=== PATIENT | female | born 1985 | race African-American/Black ===

== ENCOUNTER 2016-10-22 11:24 | Day surgery (SDC) | payer OTHER, SELFPAY ==
[2016-10-22] VITALS (7 sets, daily range): BP systolic 120–129; BP diastolic 57–76
[~2016-10-22] VITALS: Ht 167.6 cm; Wt 107.5 kg
[~2016-10-22 11:24] MED LIST: CELE-19 PO; CLON0.5T PO; CORL1.7T PO; LAMI1TAB7 PO; LUNE3TAB48 PO; NEUR600T PO; PRAZ2CAP PO; VITA100037 PO; ZANA4CAP PO
[2016-10-22] MEDS ORDERED: LR 1,000 ML IV SCH ×2 (11:30→17:15)
[2016-10-22] MEDS ORDERED: PERCOCET 5MG/325MG TAB PO ONE (11:30)
[2016-10-22] MEDS ORDERED: CelecoXIB (CeleBREX) 100 MG CAP PO ONE (11:30)
[2016-10-22] MEDS ORDERED: GABAPENTIN 300 MG CAP PO ONE (11:45)
[2016-10-22 11:57] LABS: CONTROL LINE UCG INT CTR LINE PRESENT
[2016-10-22] MEDS ORDERED: VITATAB PO (12:50)
[2016-10-22] MEDS ORDERED: THROMBIN SOLN 20,000 UNITS KIT As Ordered ONE (12:55)
[2016-10-22] MEDS ORDERED: BACITRACIN PWD 50,000 UNITS VIAL As Ordered ONE (12:55)
[2016-10-22] MEDS ORDERED: BUPIVACAINE/EPIN 0.25% 30 ML VIAL As Ordered ONE (12:55)
[2016-10-22] MEDS ORDERED: MIDAZOLAM INJ 2 MG/2 ML VIAL (J2250) As Ordered ONE (13:01)
[2016-10-22] MEDS ORDERED: fentaNYL 250 MCG/5 ML INJECTION (J3010) As Ordered ONE (13:02)
[2016-10-22] MEDS ORDERED: LIDOCAINE 2% INJ 100 MG/5 ML SDV (FOR ANES.) As Ordered ONE (13:03)
[2016-10-22] MEDS ORDERED: PROPOFOL 200 MG/20 ML VIAL As Ordered ONE ×3 (13:03→13:05)
[2016-10-22] MEDS ORDERED: ROCURONIUM BROMIDE 50 MG/5 ML VIAL As Ordered ONE (13:05)
[2016-10-22] MEDS ORDERED: ceFAZolin 2 GM/D5W 50 ML IV BAG (J0690) As Ordered ONE (15:04)
[2016-10-22] MEDS ORDERED: dexameTHASONE 4 MG/ML 1ML VIAL (J1100) As Ordered ONE (15:10)
[2016-10-22] MEDS ORDERED: METOCLOPRAMIDE INJ 10MG/2ML VIAL (J2765) As Ordered ONE (15:10)
[2016-10-22] MEDS ORDERED: BUPIVACAINE/EPIN 0.25% 30 ML VIAL XX ONE (15:35)
[2016-10-22] MEDS ORDERED: BACITRACIN PWD 50,000 UNITS VIAL XX ONE (15:35)
[2016-10-22] MEDS ORDERED: BACITRACIN PWD 50,000 UNITS VIAL IR ONE (15:35)
[2016-10-22] MEDS ORDERED: THROMBIN SOLN 20,000 UNITS KIT XX ONE (15:35)
[2016-10-22] MEDS ORDERED: HYDROmorphone HCL 2 MG/ML 1ML VIAL (J1170) As Ordered ONE (15:42)
[2016-10-22] MEDS ORDERED: SUGAMMADEX SODIUM 500 MG/5 ML VIAL (BRIDION) As Ordered ONE (15:45)
[2016-10-22] MEDS ORDERED: ONDANSETRON 4MG/2ML VIAL (J2405) As Ordered ONE (15:45)
--- NOTE | 2016-10-22 16:10 | REP ---
Lumbar spine series, portable cross-table lateral view. History: Herniated disc. Findings: A single portable obtained cross-table lateral view of the lumbar spine documents two metallic probes at the dorsal aspect of the spinal canal at the level of the L5 spinous process. The probes are aligned with the plane of the L5-S1 disc. Impression: Two metallic probes at the level of the L5 spinous process. Signed by Kvng Ortiz MD 10/22/2016 07:29 P
[2016-10-22] MEDS ORDERED: fentaNYL 100 MCG/2 ML INJECTION (J3010) As Ordered ONE (16:58)
[2016-10-22] MEDS ORDERED: MEPERIDINE INJ 25 MG/ML VIAL (J2175) As Ordered ONE (16:58)
[2016-10-22] MEDS: MEPERIDINE INJ 25 MG/ML VIAL (J2175) IV PRN ×2 (17:00→17:05)
[2016-10-22] MEDS: fentaNYL 100 MCG/2 ML INJECTION (J3010) IV PRN ×4 (17:03→17:25)
[2016-10-22] MEDS ORDERED: METOCLOPRAMIDE INJ 10MG/2ML VIAL (J2765) IV PRN (17:15)
[2016-10-22] MEDS ORDERED: PROMETHAZINE INJ 25 MG/ML VIAL (J2550) IV PRN (17:15)
[2016-10-22] MEDS ORDERED: PERCOCET 5MG/325MG TAB PO PRN ×2 (17:15)
[2016-10-22] MEDS ORDERED: ONDANSETRON 4MG/2ML VIAL (J2405) IV PRN (17:15)
[2016-10-22] MEDS ORDERED: HYDROmorphone HCL 1 MG/ML SYRINGE (J1170) IV PRN ×2 (17:15)
[2016-10-22] MEDS ORDERED: tiZANidine 4 MG TAB PO PRN (17:30)
[2016-10-22] MEDS: D5W/LR 1,000 ML IV SCH (18:30)
[2016-10-22] MEDS: GABAPENTIN 300 MG CAP PO SCH (20:20)
[2016-10-22] MEDS: clonazePAM 0.5 MG TAB PO SCH (20:20)
[2016-10-22] MEDS: OMEPRAZOLE 20 MG CAP PO SCH (20:20)
[2016-10-22] MEDS: lamoTRIgine 100MG TAB PO SCH (20:20)
[2016-10-22] MEDS: DOCUSATE SODIUM 100 MG CAP PO SCH (20:20)
[2016-10-22] MEDS ORDERED: PRAZOSIN 1 MG CAP PO SCH (21:00)
[2016-10-22] MEDS: PERCOCET 5MG/325MG TAB PO PRN (21:49)
[2016-10-23] MEDS ORDERED: diphenhydrAMINE 50 MG CAP PO ONE (00:45)
[2016-10-23] MEDS: D5W/LR 1,000 ML IV SCH (01:28)
[2016-10-23] MEDS: PERCOCET 5MG/325MG TAB PO PRN ×3 (01:48→11:06)
[2016-10-23 02:00] VITALS: BP 118/56
[2016-10-23 06:00] VITALS: BP 115/66
[2016-10-23] MEDS: lamoTRIgine 100MG TAB PO SCH (09:00)
[2016-10-23] MEDS ORDERED: CelecoXIB (CeleBREX) 100 MG CAP PO ONE (09:00)
[2016-10-23] MEDS: DOCUSATE SODIUM 100 MG CAP PO SCH (09:57)
[2016-10-23] MEDS: GABAPENTIN 300 MG CAP PO SCH (09:58)
[2016-10-23] MEDS: OMEPRAZOLE 20 MG CAP PO SCH (09:58)
[2016-10-23] MEDS: clonazePAM 0.5 MG TAB PO SCH (09:58)
--- NOTE | 2016-10-23 14:32 | RO ---
DATE OF PROCEDURE: 10/22/2016 PREOPERATIVE DIAGNOSIS: Left lower extremity radiculopathy and large disc extrusion at L5-S1 on the left side. POSTOPERATIVE DIAGNOSIS: Left lower extremity radiculopathy and large disc extrusion at L5-S1 on the left side. PROCEDURE PERFORMED: L5-S1 left laminotomy and microdiscectomy for decompression of thecal sac and nerve roots. SURGEON: Dr. Raf Maynard. CLIENT DIRECTOR: Erlin Scott PA-C. ANESTHESIA: General. ESTIMATED BLOOD LOSS: Less than 50 mL replaced with crystalloid. COMPLICATIONS: No complications. INTRAOPERATIVE FINDINGS: Include large disk extrusion sent to pathology. INDICATIONS: Yvette is a 31-year-old female suffering from significant left lower extremity radicular pain and sensory deficit with a large disc herniation on MRI who has elected for operative intervention. Consent reviewed in detail including sophia discussion of the pathology involved, the procedure proposed, alternatives including doing nothing and risks including not limited to pain, failure, incomplete relief, need for more surgery, bleeding blood loss, infection, blood clots or other problems. The patient agreed to proceed with surgery. DESCRIPTION OF PROCEDURE: Identified in the holding area, site and side verified. Brought to the operating room and positioned after intubation on the Rafiq frame for exposure. Next, once I and the senior statistician were comfortable with the patient's positioning, she was sterilely prepped and draped for exposure of the left lower extremity. Time-out was accomplished. I stood on the patient's left side. I utilized 3.5 loupe magnification at the beginning of the case followed by the microscope later in the case for the decompression. Next, we infiltrated the incision with 0.25% Marcaine with epinephrine. This was accomplished by Mr. Scott. I had palpated bony landmarks of the iliac crest for plotting the incision. The patient's body habitus was concentrated over the posterior area. The length of the incision was about four fingerbreadths long. I made the incision with a 10 blade knife developed down through skin and subcuticular tissues to the posterior lumbar fascia. Appreciated crossing the fibers at L4-5 and I divided the posterior lumbar fascia reflecting it off of the spinous process of L5-S1 and dissection continued along the L5 lamina surface. Next, when I encountered the L5 lamina, I utilized the [employer] Augustus drill t2 drill a 4 mm divot in the lamina into which I placed a Anaya Sapphire retractor. This lead us to obtain a cross-table lateral x-ray to verify level. Once this was accomplished I then utilized the [place] to remove additional posterior lamina of five. My loupes and headlamp were removed. The microscope was brought in. The shadow line retractor was installed. The microscope facilitated participation of Mr. Scott and safe use the high-speed bur. Mr. Scott utilized retractors as well the suction while I utilized the high-speed bur to implement a left unilateral laminotomy extending to the bare area of L5, slightly undercutting the spinous process and extending to the bare area of S1. We utilized curved curette to elevate ligamentum flavum was removed exposing the thecal sac. There was some was some remaining residual epidural fat. The S1 nerve root was identified. The S1 nerve root was appreciated to have disc extrusion which extended under the shoulder but also in the axillary position. I was able to reflect the S1 nerve root using a Anaya Prasanth over the large disc extrusion or the lateral aspect of it and Mr. Scott was able to retain the nerve root using a suction Alvin retractor. Then I utilized the pituitaries to remove, in piecemeal fashion, large fragments of extruded disc material, which were sent the lab for pathology. Once this was accomplished I explored the axillary region as well as the sub-shoulder region and the interspace at L5-S1 for any additional removable friable disc material. I also undercut the superior facette of S1 and inspected the neural foramina which was freed from disc material and impingement. Next, irrigation was accomplished. I also utilized thrombin Gelfoam which was removed at the conclusion of case. At the conclusion of the case, we appreciated no active bleeding. Next, posterior lumbar fascia was reapproximated with interrupted stitch by Mr. Scott. The deep dermis was approximated with interrupted stitch by myself and Mr. Scott and Monocryl was utilized on skin, followed by Steri-Strips. A sterile dressing was applied. The patient was then able to be moved to the hospital bed, extubated, moved to the recovery room in good condition. Mr. Scott participated in the entirety case in the capacity of first front ventilator. For further details please refer to medical record. JENNIFER
== END 2016-10-23 11:20 | disposition home or self-care (01) ==
LOC: EDSEX → M SDC 11:24 → MERGE 13:00 → M MS5PR 18:37 → M SDC 10-23 11:20
PROVIDERS: ATTEND Orthopaedic Surgery
DX: M54.17 Radiculopathy, lumbosacral region (principal); M51.27 Other intervertebral disc displacement, lumbosacral region; I51.9 Heart disease, unspecified; K21.9 Gastro-esophageal reflux disease without esophagitis; F32.9 Major depressive disorder, single episode, unspecified; I47.1 Supraventricular tachycardia; Z79.899 Other long term (current) drug therapy; Z91.040 Latex allergy status
CPT/HCPCS: 36415; 63030; 72110; 84703; 86850; 86900; 86901; 88304; 96374; J0690; J1100; J1170; J2175; J2250; J2405; J2765; J3010

== ENCOUNTER 2018-11-18 05:35 | Emergency (ER) | payer OTHER ==
[~2018-11-18] VITALS: Ht 170.2 cm; Wt 110.5 kg
[~2018-11-18 05:35] MED LIST changes: -CELE-19 PO; +CELE1CAP4 PO; -CLON0.5T PO; +CLON0.5T8 PO; +LUNE3TAB36 PO; -LUNE3TAB48 PO; -VITA100037 PO; +VITA100067 PO; +VITATAB PO
[2018-11-18] MEDS ORDERED: KETOROLAC 60 MG/2 ML VIAL (J1885) IM ONE (06:15)
[2018-11-18] MEDS ORDERED: OMEP20CA3 PO (06:24)
[2018-11-18] MEDS ORDERED: METF500T13 PO (06:24)
[2018-11-18] MEDS ORDERED: CALC600T57 PO (06:24)
[2018-11-18] MEDS ORDERED: TRAZ-160 PO (06:24)
[2018-11-18] MEDS ORDERED: RIZA10TA4 SL (06:26)
[2018-11-18] MEDS ORDERED: ACET-683 PO (06:26)
--- NOTE | 2018-11-18 06:58 | REPVR ---
EXAM: CT Lumbar Spine Without Contrast EXAM DATE/TIME: 11/18/2018 6:09 AM CLINICAL HISTORY: 33 years old, female; Pain; Low back pain; Additional info: Midline pain after heavy lifting/bending; HX herniated disc TECHNIQUE: Axial computed tomography images of the lumbar spine without intravenous contrast. All CT scans at this facility use at least one of these dose optimization techniques: automated exposure control; mA and/or kV adjustment per patient size (includes targeted exams where dose is matched to clinical indication); or iterative reconstruction. Coronal and sagittal reformatted images were created and reviewed. COMPARISON: [facility] Spine. Lumbosacral, complete 10/22/2016 3:15 PM FINDINGS: Vertebrae: There is right L5 S1 and more significant at L4-L5 facet arthrosis. Discs/Spinal canal/Neural foramina: There is mild right paracentral and foraminal disc bulge at L4-L5 without apparent appreciable mass effect on the exiting nerve. There is L5 S1 disc degenerative changes with decrease in intervertebral disc and small to moderate size diffuse disc bulge with osteophyte formations. Soft tissues: Unremarkable. IMPRESSION: 1. No fracture or subluxation. 2. Lower lumbar spine degenerative changes and disc bulge as described above. Electronically signed by: Asad Corbin On 11/18/2018 06:57:59 AM
[2018-11-18 07:12] VITALS: BP 127/77
--- NOTE | 2018-11-18 08:20 | ED PDOC ---
Post-Departure Follow-Up ft [facility] faxed formal report of ct ls spine for fu Kat Lobo MD Nov 18, 2018 08:20
== END 2018-11-18 07:14 | disposition home or self-care (01) ==
LOC: M ED 05:35
DX: M51.26 Other intervertebral disc displacement, lumbar region (principal); M51.37 Other intervertebral disc degeneration, lumbosacral region; J45.909 Unspecified asthma, uncomplicated; I47.1 Supraventricular tachycardia; K21.9 Gastro-esophageal reflux disease without esophagitis; F41.9 Anxiety disorder, unspecified; F32.9 Major depressive disorder, single episode, unspecified; G43.909 Migraine, unspecified, not intractable, without status migrainosus; Z91.040 Latex allergy status; Z79.899 Other long term (current) drug therapy; Z79.84 Long term (current) use of oral hypoglycemic drugs
CPT/HCPCS: 72131; 96372; 99283; J1885

== ENCOUNTER → 2018-11-27 | Outpatient (CLI) | payer OTHER ==
[~2018-11-27] MED LIST changes: +ACET-683 PO; +CALC600T57 PO; +METF500T13 PO; +OMEP20CA3 PO; +PROHANCE 279.3MG/ML 15ML VIAL (A9576) As Ordered ONE; +PROHANCE 279.3MG/ML 5ML VIAL (A9576) As Ordered ONE; +RIZA10TA4 SL; +TRAZ-160 PO
--- NOTE | 2018-11-27 19:50 | REP ---
MR LUMBAR SPINE WITHOUT AND WITH CONTRAST: HISTORY: Back pain. CONTRAST: ProHance 20 mL. COMPARISON: 09/14/2016. Decreased signal intensity on T2-weighted images is present in the L5-S1 intervertebral disc . The disc is decreased in height. These findings are consistent with disc degeneration. There is no disc bulge or herniation at the L1-2 through L3-4 levels. There is hypertrophy of the posterior articulating facets at the L2-3 and L3-4 levels. The nerves exit the neural foramina without compression. A diffuse disc bulge is present at the L4-5 level. This abuts the thecal sac. There is hypertrophy of the posterior articulating facets. The L4 nerves exit the neural foramina without compression. A diffuse disc bulge and mild size left paracentral disc extrusion are present at the L5-S1 level. There is minimal compression of the thecal sac and left S1 nerve as it exits the thecal sac. There is hypertrophy of the posterior articulating facets. The L5 nerves exit the neural foramina without compression. A left laminectomy defect is present. Enhancing scar tissue is present in the left lateral aspect of the spinal canal. The scar tissue involves the left S1 nerve . The conus medullaris is normal in appearance terminating at the level of the L1-2 intervertebral disc. Normal signal intensity is present in the lumbar vertebral bodies. IMPRESSION: 1. Diffuse disc bulge at the L4-5 level . This abuts the thecal sac. The disc bulge is new finding. 2. Diffuse disc bulge and mild size left paracentral disc extrusion at the L5-S1 level with minimal compression of the thecal sac and left S1 nerve as it exits the thecal sac. A left laminectomy defect is present. Scar tissue involves the left S1 nerve. Electronically Signed by Ricardo Todd MD 11/28/2018 08:39 A
== END ==
LOC: M RAD 17:01
PROVIDERS: ATTEND Family Medicine
DX: R20.0 Anesthesia of skin (principal); M51.26 Other intervertebral disc displacement, lumbar region
CPT/HCPCS: 72158; A9576

== ENCOUNTER → 2019-10-30 | Outpatient (CLI) | payer OTHER ==
[~2019-10-30] MED LIST changes: +CLON0.5T2 PO; -CLON0.5T8 PO; +D3 U5000 PO; +GABA600T4 PO; +METF-839 PO; +OMEP1CAP73 PO; -OMEP20CA3 PO; -PROHANCE 279.3MG/ML 15ML VIAL (A9576) As Ordered ONE; -PROHANCE 279.3MG/ML 5ML VIAL (A9576) As Ordered ONE; -RIZA10TA4 SL; +RIZA10TA58 SL; -TRAZ-160 PO; +TRAZ-252 PO; +[UNRECOGNIZED DRUG - CODE] PO
--- NOTE | 2019-10-30 10:33 | REP ---
Clinical: Trauma . Technique: AP, lateral, bilateral oblique views of the left elbow. Findings: No acute fracture or dislocation is appreciated. Joint spaces and surrounding soft tissues appear normal. Lateral view demonstrates normal positioning to the anterior and posterior fat pads without evidence for effusion/hemarthrosis. No subcutaneous emphysema or foreign body identified. Impression: Normal left elbow radiographs. Electronically Signed by Ze Ibrahim MD 10/30/2019 10:24 A
--- NOTE | 2019-10-30 10:44 | REP ---
Clinical: Trauma/injury. Technique: AP, lateral, bilateral oblique and coned-down views of the lumbosacral spine. Findings: Alignment and lordosis maintained. No acute fracture / compression injury or subluxation. Degenerative spondylosis at L4-5 and L5-S1 cannot be excluded. Impression: 1. No acute fracture / compression injury or subluxation. Electronically Signed by Ze Ibrahim MD 10/30/2019 10:36 A
== END ==
LOC: M LRY 09:54
PROVIDERS: ATTEND Nurse Practitioner Family
DX: S39.92XA Unspecified injury of lower back, initial encounter (principal); S59.902A Unspecified injury of left elbow, initial encounter; W18.30XA Fall on same level, unspecified, initial encounter; Y92.9 Unspecified place or not applicable

== ENCOUNTER 2019-11-06 13:34 | Emergency (ER) | payer OTHER ==
[~2019-11-06] VITALS: Ht 170.2 cm; Wt 113.0 kg
[2019-11-06] MEDS ORDERED: FERR1TAB8 PO (13:43)
[2019-11-06] MEDS ORDERED: BIOT1000 PO (13:43)
[2019-11-06] MEDS ORDERED: KETOROLAC 60 MG/2 ML VIAL (J1885) IM ONE (16:30)
[2019-11-06] MEDS ORDERED: LIDOCAINE 5% (LIDODERM) PATCH TD ONE (16:30)
[2019-11-06] MEDS ORDERED: ACETAMINOPHEN 325 MG TAB PO ONE (16:30)
[2019-11-06] MEDS ORDERED: KETO10TAB PO (17:14)
[2019-11-06] MEDS ORDERED: CYCL10TA PO (17:14)
[2019-11-06 17:23] VITALS: BP 153/98
[2019-11-06] MEDS ORDERED: **NOTE PATIENT COMMENT** MISC XX SCH (21:00)
== END 2019-11-06 17:25 | disposition home or self-care (01) ==
LOC: M ED 13:34
DX: S29.012A Strain of muscle and tendon of back wall of thorax, initial encounter (principal); W00.0XXA Fall on same level due to ice and snow, initial encounter; Y92.89 Other specified places as the place of occurrence of the external cause; Y93.01 Activity, walking, marching and hiking; Y99.0 Civilian activity done for income or pay; M54.9 Dorsalgia, unspecified; G89.29 Other chronic pain; Z91.040 Latex allergy status; Z79.899 Other long term (current) drug therapy
CPT/HCPCS: 96372; 99283; J1885

== ENCOUNTER 2021-09-22 22:35 | Emergency (ER) | payer OTHER ==
[~2021-09-22] VITALS: Ht 170.2 cm; Wt 113.6 kg
[~2021-09-22 22:35] MED LIST changes: +BIOT1000 PO; +CYCL-707 PO; +FERR1TAB8 PO; +KETO10TAB PO
[2021-09-23 08:19] LABS: BASO % 0.6 % (0.0-1.0); EOS # 0.1 10^3/uL (0.0-0.5); EOS % 1.4 % (0.0-3.0); HEMATOCRIT 38.1 % (36.0-47.0); HEMOGLOBIN 11.8 g/dl (12.0-15.5); LYMPH # 2.9 10^3/uL (1.5-5.0); LYMPH % 41.1 % (24.0-44.0); MEAN CORPUSCULAR HEMOGLOBIN 27.1 pg (27.0-33.0); MEAN CORPUSCULAR VOLUME 87.4 fl (80.0-96.0); MONO # 0.8 10^3/uL (0.0-0.8); MONO % 11.6 % (2.0-8.0); NEUTROPHILS # 3.2 10^3/uL (1.5-8.5); PLATELET COUNT, AUTOMATED 318 10^3/uL (150-450); RED BLOOD COUNT 4.36 10^6/uL (4.00-5.40); WHITE BLOOD COUNT 7.2 10^3/uL (4.0-10.0)
[2021-09-23 08:46] LABS: ALBUMIN 3.6 GM/DL (3.2-5.2); ALT/SGPT 25 U/L (12-78); BILIRUBIN,DIRECT 0.1 MG/DL (0.0-0.2); BILIRUBIN,TOTAL 0.5 MG/DL (0.2-1.0); LIPASE 77 U/L (73-393); TOTAL PROTEIN 7.4 GM/DL (6.4-8.2)
[2021-09-23 08:59] LABS: HCG, SERUM QUALITATIVE NEGATIVE (NEGATIVE)
[2021-09-23 10:10] LABS: BLOOD UREA NITROGEN 12 MG/DL (7-18); CARBON DIOXIDE LEVEL 23 MEQ/L (21-32); CHLORIDE LEVEL 109 MEQ/L (98-107); CREATININE FOR GFR 0.82 MG/DL (0.55-1.30); GLOMERULAR FILTRATION RATE > 60.0 (>60); GLUCOSE, FASTING 102 MG/DL (70-100); POTASSIUM SERUM 4.3 MEQ/L (3.5-5.1); SODIUM LEVEL 139 MEQ/L (136-145)
[2021-09-23] MEDS ORDERED: GI COCKTAIL 50ML BTL(HYOSCYAMINE/MAALOX/LIDOCAINE VISCOUS)(1:3:1) PO ONE (10:25)
[2021-09-23 10:43] VITALS: BP 137/80
== END 2021-09-23 11:52 | disposition home or self-care (01) ==
LOC: M ED 22:35
DX: K80.70 Calculus of gallbladder and bile duct without cholecystitis without obstruction (principal); J45.909 Unspecified asthma, uncomplicated; F33.9 Major depressive disorder, recurrent, unspecified; F41.9 Anxiety disorder, unspecified; K21.9 Gastro-esophageal reflux disease without esophagitis; Z79.899 Other long term (current) drug therapy; Z91.040 Latex allergy status

== ENCOUNTER → 2021-12-28 | Outpatient (CLI) | payer OTHER ==
[~2021-12-28] MED LIST changes: +DIAZ10TA2; +MELA5TAB47 PO; +ONDA4TAB6 PO; +ULTR50TA8 PO
== END ==
LOC: M SOG 15:29
PROVIDERS: ATTEND Physician Assistant
DX: M25.571 Pain in right ankle and joints of right foot (principal); M25.572 Pain in left ankle and joints of left foot

== ENCOUNTER 2022-01-04 04:29 | Emergency (ER) | payer OTHER ==
[~2022-01-04] VITALS: Ht 170.2 cm; Wt 112.7 kg
[~2022-01-04 04:29] MED LIST changes: -ONDA4TAB6 PO; -ULTR50TA8 PO
[2022-01-04 05:57] LABS: BASO % 0.4 % (0.0-1.0); EOS % 0.3 % (0.0-3.0); HEMATOCRIT 37.8 % (36.0-47.0); HEMOGLOBIN 12.2 g/dl (12.0-15.5); LYMPH # 1.2 10^3/uL (1.5-5.0); MEAN CORPUSCULAR HEMOGLOBIN 27.6 pg (27.0-33.0); MEAN CORPUSCULAR HGB CONC 32.3 g/dl (32.0-36.5); MEAN CORPUSCULAR VOLUME 85.5 fl (80.0-96.0); MONO # 0.5 10^3/uL (0.0-0.8); MONO % 6.4 % (2.0-8.0); NEUTROPHILS # 6.2 10^3/uL (1.5-8.5); NEUTROPHILS % 77.4 % (36.0-66.0); PLATELET COUNT, AUTOMATED 314 10^3/uL (150-450); RED BLOOD COUNT 4.42 10^6/uL (4.00-5.40)
[2022-01-04] MEDS ORDERED: MORPHINE 4 MG/ML 1ML VIAL/SYRINGE IV ONE (06:15)
[2022-01-04] MEDS ORDERED: NS 1,000 ML IV ONE (06:15)
[2022-01-04] MEDS ORDERED: ONDANSETRON 4MG/2ML VIAL IV ONE (06:15)
[2022-01-04 06:28] LABS: HCG, SERUM QUALITATIVE NEGATIVE (NEGATIVE)
[2022-01-04 06:29] LABS: ALT/SGPT 27 U/L (12-78); BILIRUBIN,DIRECT 0.1 MG/DL (0.0-0.2); BILIRUBIN,TOTAL 0.5 MG/DL (0.2-1.0); BLOOD UREA NITROGEN 8 MG/DL (7-18); CALCIUM LEVEL 9.5 MG/DL (8.5-10.1); CARBON DIOXIDE LEVEL 22 MEQ/L (21-32); CHLORIDE LEVEL 108 MEQ/L (98-107); CREATININE FOR GFR 0.85 MG/DL (0.55-1.30); GLOMERULAR FILTRATION RATE > 60.0 (>60); GLUCOSE, FASTING 120 MG/DL (70-100); LIPASE 84 U/L (73-393); POTASSIUM SERUM 4.2 MEQ/L (3.5-5.1); SODIUM LEVEL 138 MEQ/L (136-145); TOTAL PROTEIN 7.6 GM/DL (6.4-8.2)
[2022-01-04] MEDS ORDERED: PROMETHAZINE 25 MG TAB PO ONE (08:05)
[2022-01-04] MEDS ORDERED: ONDA4TAB6 PO (08:09)
[2022-01-04] MEDS ORDERED: ULTR50TA8 PO (08:09)
[2022-01-04 08:37] VITALS: BP 140/78
== END 2022-01-04 08:48 | disposition home or self-care (01) ==
LOC: M ED 04:29
DX: K80.20 Calculus of gallbladder without cholecystitis without obstruction (principal); R11.2 Nausea with vomiting, unspecified; G43.909 Migraine, unspecified, not intractable, without status migrainosus; F32.A Depression, unspecified; F41.9 Anxiety disorder, unspecified; Z91.040 Latex allergy status; Z91.018 Allergy to other foods; Z79.899 Other long term (current) drug therapy
CPT/HCPCS: 76705; 80048; 80076; 83690; 84703; 85025; 93041; 96361; 96374; 96375; 99284; J2270; J2405

== ENCOUNTER 2022-01-06 06:11 | Day surgery (SDC) | payer OTHER ==
[~2022-01-06] VITALS: Ht 170.2 cm; Wt 112.0 kg
[~2022-01-06 06:11] MED LIST changes: +EMLA CREAM 5GM TUBE (LIDOCAINE/PRILOCAINE) TOP PRN; +LIDOCAINE 1% MDV 20ML VIAL SQ PRN; +LR 1,000 ML IV ONE; +ONDA4TAB6 PO; +ULTR50TA8 PO
[2022-01-06 06:57] LABS: HEMATOCRIT 36.7 % (36.0-47.0); HEMOGLOBIN 11.8 g/dl (12.0-15.5); MEAN CORPUSCULAR HEMOGLOBIN 27.2 pg (27.0-33.0); MEAN CORPUSCULAR HGB CONC 32.2 g/dl (32.0-36.5); MEAN CORPUSCULAR VOLUME 84.6 fl (80.0-96.0); PLATELET COUNT, AUTOMATED 282 10^3/uL (150-450); RED BLOOD COUNT 4.34 10^6/uL (4.00-5.40); WHITE BLOOD COUNT 6.4 10^3/uL (4.0-10.0)
[2022-01-06] MEDS ORDERED: dexameTHASONE 4 MG/ML 1ML VIAL (J1100 PER 1MG) As Ordered ONE (07:07)
[2022-01-06] MEDS ORDERED: LIDOCAINE 2% 100MG/5ML SDV (FOR ANES.) As Ordered ONE (07:07)
[2022-01-06] MEDS ORDERED: KETOROLAC 60MG 2ML VIAL As Ordered ONE (07:07)
[2022-01-06] MEDS ORDERED: ONDANSETRON 4MG/2ML VIAL As Ordered ONE ×2 (07:07→07:40)
[2022-01-06] MEDS ORDERED: fentaNYL 250 MCG/5 ML INJECTION As Ordered ONE (07:07)
[2022-01-06] MEDS ORDERED: MIDAZOLAM INJ 2MG/2ML VIAL (J2250 PER 1MG) As Ordered ONE (07:07)
[2022-01-06] MEDS ORDERED: propofoL 200 MG/20 ML VIAL As Ordered ONE (07:08)
[2022-01-06] MEDS ORDERED: LIDOCAINE 1% MDV 20ML VIAL As Ordered ONE (07:11)
[2022-01-06] MEDS ORDERED: SILVER NITRATE APPLICATOR As Ordered ONE (07:11)
[2022-01-06] MEDS ORDERED: ACETAMINOPHEN 1000MG 100ML IV BTL (OFIRMEV) (J0131 PER 10MG) As Ordered ONE (07:29)
[2022-01-06] MEDS ORDERED: METOCLOPRAMIDE INJ 10MG/2ML VIAL (J2765 PER 1) As Ordered ONE (07:29)
[2022-01-06] MEDS ORDERED: PHENYLephrine 500MCG 5ML (100MCG/ML) SYRINGE As Ordered ONE (07:48)
[2022-01-06] MEDS ORDERED: ONDANSETRON 4MG/2ML VIAL IV PRN (08:40)
[2022-01-06] MEDS ORDERED: PERCOCET 5MG/325MG TAB PO PRN (08:40)
[2022-01-06] MEDS ORDERED: LR 1,000 ML IV SCH ×2 (08:40)
[2022-01-06] MEDS ORDERED: fentaNYL 100 MCG/2 ML INJECTION IV PRN (08:40)
[2022-01-06 09:18] VITALS: BP 151/79
== END 2022-01-06 09:39 | disposition home or self-care (01) ==
LOC: M SDC 06:11
PROVIDERS: ATTEND Obstetrics & Gynecology
DX: N85.8 Other specified noninflammatory disorders of uterus (principal); J45.909 Unspecified asthma, uncomplicated; E66.9 Obesity, unspecified; Z68.39 Body mass index [BMI] 39.0-39.9, adult; I47.1 Supraventricular tachycardia; Z88.8 Allergy status to other drugs, medicaments and biological substances; Z91.040 Latex allergy status; Z91.018 Allergy to other foods
CPT/HCPCS: 36415; 58558; 81025; 85027; 86850; 86900; 86901; 88305; J0131; J1100; J1885; J2250; J2370; J2405; J2765; J3010

== ENCOUNTER 2022-01-26 09:45 | Day surgery (SDC) | payer OTHER ==
[~2022-01-26] VITALS: Ht 170.2 cm; Wt 110.7 kg
[~2022-01-26 09:45] MED LIST changes: +BUPIVACAINE/EPIN 0.25% 30 ML VIAL As Ordered ONE; -EMLA CREAM 5GM TUBE (LIDOCAINE/PRILOCAINE) TOP PRN; -LIDOCAINE 1% MDV 20ML VIAL SQ PRN
[2022-01-26] MEDS ORDERED: MIDAZOLAM INJ 2MG/2ML VIAL (J2250 PER 1MG) As Ordered ONE (12:20)
[2022-01-26] MEDS ORDERED: fentaNYL 250 MCG/5 ML INJECTION As Ordered ONE (12:21)
[2022-01-26] MEDS ORDERED: ACETAMINOPHEN 1000MG 100ML IV BTL (OFIRMEV) (J0131 PER 10MG) As Ordered ONE (12:55)
[2022-01-26] MEDS ORDERED: LABETALOL 100MG/20ML VIAL As Ordered ONE (13:04)
[2022-01-26] MEDS ORDERED: propofoL 200 MG/20 ML VIAL As Ordered ONE (13:08)
[2022-01-26] MEDS ORDERED: ONDANSETRON 4MG/2ML VIAL As Ordered ONE (13:08)
[2022-01-26] MEDS ORDERED: ROCURONIUM BROMIDE 50 MG/5 ML VIAL As Ordered ONE ×2 (13:08→13:36)
[2022-01-26] MEDS ORDERED: LIDOCAINE 2% 100MG/5ML SDV (FOR ANES.) As Ordered ONE (13:08)
[2022-01-26] MEDS ORDERED: dexameTHASONE 4 MG/ML 1ML VIAL (J1100 PER 1MG) As Ordered ONE (13:08)
[2022-01-26] MEDS ORDERED: SUGAMMADEX SODIUM 500 MG/5 ML VIAL (BRIDION) As Ordered ONE (13:09)
[2022-01-26] MEDS ORDERED: KETOROLAC 60MG 2ML VIAL As Ordered ONE (13:10)
[2022-01-26] MEDS ORDERED: ONDANSETRON 4MG/2ML VIAL IV PRN (14:10)
[2022-01-26] MEDS ORDERED: LR 1,000 ML IV SCH (14:10)
[2022-01-26] MEDS ORDERED: METOCLOPRAMIDE INJ 10MG/2ML VIAL (J2765 PER 1) IV PRN (14:10)
[2022-01-26] MEDS ORDERED: NORCO, ANEXSIA 5/325MG TABLET (HYDROcodone/ACETAMINOPHEN) PO PRN (14:10)
[2022-01-26] MEDS: PERCOCET 5MG/325MG TAB PO PRN ×2 (14:15→14:49)
[2022-01-26] MEDS: fentaNYL 100 MCG/2 ML INJECTION IV PRN ×4 (14:25→14:48)
[2022-01-26 16:04] VITALS: BP 137/74
== END 2022-01-26 16:12 | disposition home or self-care (01) ==
LOC: M SDC 09:45
PROVIDERS: ATTEND Surgery
DX: K80.10 Calculus of gallbladder with chronic cholecystitis without obstruction (principal); R12 Heartburn; R94.31 Abnormal electrocardiogram [ECG] [EKG]; G43.909 Migraine, unspecified, not intractable, without status migrainosus; F43.10 Post-traumatic stress disorder, unspecified; F41.9 Anxiety disorder, unspecified; F32.A Depression, unspecified; Z91.040 Latex allergy status
CPT/HCPCS: 47562; 81025; 88304; J0131; J1100; J1885; J2250; J2405; J3010; S2900

== ENCOUNTER → 2022-02-08 | Outpatient (CLI) | payer OTHER ==
[~2022-02-08] MED LIST changes: -BUPIVACAINE/EPIN 0.25% 30 ML VIAL As Ordered ONE; -LR 1,000 ML IV ONE
== END ==
LOC: M RAD 06:31
PROVIDERS: ATTEND Orthopaedic Surgery Hand Surgery
DX: S82.51XA Displaced fracture of medial malleolus of right tibia, initial encounter for closed fracture (principal); W18.30XA Fall on same level, unspecified, initial encounter; Y92.009 Unspecified place in unspecified non-institutional (private) residence as the place of occurrence of the external cause

== ENCOUNTER → 2022-06-13 | Outpatient (CLI) | payer OTHER ==
[~2022-06-13] MED LIST changes: +ACET32TAB PO
== END ==
LOC: M LABSMTC 10:16
PROVIDERS: ATTEND Anesthesiology
DX: Z01.818 Encounter for other preprocedural examination (principal); Z11.52 Encounter for screening for COVID-19

== ENCOUNTER 2022-06-16 06:15 | Day surgery (SDC) | payer OTHER ==
[~2022-06-16] VITALS: Ht 170.2 cm; Wt 114.3 kg
[~2022-06-16 06:15] MED LIST changes: +ceFAZolin SOD 2 GM in IV 1 EA IV ONE
[2022-06-16] MEDS ORDERED: LR 1,000 ML IV SCH ×2 (06:25→09:25)
[2022-06-16] MEDS ORDERED: LIDOCAINE 1% SDV 30ML VIAL As Ordered ONE (07:06)
[2022-06-16] MEDS ORDERED: BUPIVACAINE HCL 0.5% 30ML VIAL As Ordered ONE (07:06)
[2022-06-16] MEDS ORDERED: KETOROLAC 60MG 2ML VIAL As Ordered ONE (07:14)
[2022-06-16] MEDS ORDERED: HYDROmorphone HCL 2MG/ML 1ML VIAL As Ordered ONE (07:14)
[2022-06-16] MEDS ORDERED: MIDAZOLAM INJ 2MG/2ML VIAL (J2250 PER 1MG) As Ordered ONE (07:14)
[2022-06-16] MEDS ORDERED: dexameTHASONE 4 MG/ML 1ML VIAL (J1100 PER 1MG) As Ordered ONE (07:14)
[2022-06-16] MEDS ORDERED: ONDANSETRON 4MG 2ML VIAL As Ordered ONE (07:15)
[2022-06-16] MEDS ORDERED: ACETAMINOPHEN 1000MG 100ML IV BTL (OFIRMEV) (J0131 PER 10MG) As Ordered ONE (07:15)
[2022-06-16] MEDS ORDERED: LIDOCAINE 2% 100MG/5ML SDV (FOR ANES.) As Ordered ONE (07:15)
[2022-06-16] MEDS ORDERED: propofoL 200 MG/20 ML VIAL As Ordered ONE (07:15)
[2022-06-16] MEDS ORDERED: METOCLOPRAMIDE INJ 10MG/2ML VIAL (J2765 PER 1) As Ordered ONE (07:45)
[2022-06-16] MEDS ORDERED: oxyCODONE 5MG TAB PO PRN (09:25)
[2022-06-16] MEDS ORDERED: ONDANSETRON 4MG 2ML VIAL IV PRN (09:25)
[2022-06-16] MEDS ORDERED: fentaNYL 100 MCG/2 ML INJECTION IV PRN (09:25)
[2022-06-16 10:35] VITALS: BP 145/77
== END 2022-06-16 10:58 | disposition home or self-care (01) ==
LOC: M SDC 06:15
PROVIDERS: ATTEND Podiatrist Foot & Ankle Surgery
DX: S93.491D Sprain of other ligament of right ankle, subsequent encounter (principal); X58.XXXD Exposure to other specified factors, subsequent encounter; J45.909 Unspecified asthma, uncomplicated; I51.9 Heart disease, unspecified; Z88.8 Allergy status to other drugs, medicaments and biological substances; Z91.040 Latex allergy status; Z91.018 Allergy to other foods
CPT/HCPCS: 27698; 81025; C1713; J0131; J0690; J1100; J1170; J1885; J2250; J2405; J2765

== ENCOUNTER → 2022-08-03 | Outpatient (CLI) | payer OTHER ==
[~2022-08-03] MED LIST changes: -ceFAZolin SOD 2 GM in IV 1 EA IV ONE
== END ==
LOC: M SOG 11:17
PROVIDERS: ATTEND Orthopaedic Surgery Hand Surgery
DX: M25.531 Pain in right wrist (principal); M25.532 Pain in left wrist

== ENCOUNTER → 2022-11-26 | Outpatient (CLI) | payer OTHER ==
[~2022-11-26] MED LIST changes: +B-2100TA PO; +FLON1SPR NARES; +IRON65TA2 PO; +MAGN400C PO; +MIRT1TAB16 PO; +OMEG10002 PO; +OMEP-173 PO; +PROA1AER2 INH; +RA S0.65 NARES; +VITA100093 PO; +VITMTA PO; +[UNRECOGNIZED DRUG - CODE] PO; -[UNRECOGNIZED DRUG - CODE] PO
== END ==
LOC: M LABSMTC 10:08
PROVIDERS: ATTEND Anesthesiology
DX: Z01.812 Encounter for preprocedural laboratory examination (principal); Z20.822 Contact with and (suspected) exposure to COVID-19

== ENCOUNTER 2022-12-01 08:28 | Day surgery (SDC) | payer OTHER ==
[~2022-12-01] VITALS: Ht 170.2 cm; Wt 122.8 kg
[2022-12-01] MEDS ORDERED: fentaNYL 100 MCG/2 ML INJECTION As Ordered ONE (09:07)
[2022-12-01] MEDS ORDERED: MIDAZOLAM INJ 2MG/2ML VIAL As Ordered ONE (09:08)
[2022-12-01] MEDS ORDERED: LIDOCAINE 1% SDV 5ML VIAL SC PRN (09:10)
[2022-12-01] MEDS ORDERED: LR 1,000 ML IV SCH ×2 (09:10→11:35)
[2022-12-01] MEDS ORDERED: ONDANSETRON 4MG 2ML VIAL As Ordered ONE (09:39)
[2022-12-01] MEDS ORDERED: LIDOCAINE 2% 100MG/5ML SDV (FOR ANES.) As Ordered ONE (09:39)
[2022-12-01] MEDS ORDERED: propofoL 200 MG/20 ML VIAL As Ordered ONE (09:39)
[2022-12-01] MEDS ORDERED: BUPIVACAINE HCL 0.25% 30ML VIAL As Ordered ONE (10:29)
[2022-12-01] MEDS ORDERED: fentaNYL 100 MCG/2 ML INJECTION IV PRN (11:35)
[2022-12-01] MEDS ORDERED: ONDANSETRON 4MG 2ML VIAL IV PRN (11:35)
[2022-12-01] MEDS: oxyCODONE 5MG TAB PO PRN ×2 (11:46→12:10)
[2022-12-01 12:25] VITALS: BP 141/97
== END 2022-12-01 12:46 | disposition home or self-care (01) ==
LOC: M SDC 08:28
PROVIDERS: ATTEND Orthopaedic Surgery Hand Surgery
DX: G56.02 Carpal tunnel syndrome, left upper limb (principal); R94.31 Abnormal electrocardiogram [ECG] [EKG]; I47.1 Supraventricular tachycardia; K21.9 Gastro-esophageal reflux disease without esophagitis; J45.909 Unspecified asthma, uncomplicated; F43.10 Post-traumatic stress disorder, unspecified; M54.9 Dorsalgia, unspecified; Z79.899 Other long term (current) drug therapy
CPT/HCPCS: 29848; 81025; J1100; J2250; J2405; J3010

== ENCOUNTER → 2023-07-06 | Outpatient (CLI) | payer OTHER ==
[~2023-07-06] MED LIST changes: -LUNE3TAB36 PO; +LUNE3TAB50 PO
== END ==
LOC: M SLEEP 20:00
DX: R06.83 Snoring (principal)

== ENCOUNTER → 2023-09-23 | Outpatient (CLI) | payer OTHER | LOC: M WHC 14:01 | PROVIDERS: ATTEND Nurse Practitioner Family | DX: Z12.31 Encounter for screening mammogram for malignant neoplasm of breast (principal) ==

== ENCOUNTER → 2023-10-06 | Outpatient (CLI) | payer OTHER | LOC: M WHC 08:13 | PROVIDERS: ATTEND Nurse Practitioner Family | DX: R92.2 Inconclusive mammogram (principal); N63.20 Unspecified lump in the left breast, unspecified quadrant ==

== ENCOUNTER → 2023-10-24 | Outpatient (CLI) | payer OTHER | LOC: M RAD 16:13 | PROVIDERS: ATTEND Nurse Practitioner Family | DX: M54.9 Dorsalgia, unspecified (principal) ==

== ENCOUNTER 2023-11-22 10:39 | Day surgery (SDC) | payer OTHER ==
[~2023-11-22] VITALS: Ht 170.2 cm; Wt 116.2 kg
[~2023-11-22 10:39] MED LIST changes: +BRIN10TA4 PO; +ROSU5TAB5 PO; +THERTAB52 PO; +TRAZ-257 PO
[2023-11-22] MEDS ORDERED: LR 1,000 ML IV SCH ×2 (10:45→13:45)
[2023-11-22] MEDS ORDERED: ONDANSETRON 4MG 2ML VIAL As Ordered ONE (11:43)
[2023-11-22] MEDS ORDERED: MIDAZOLAM INJ 2MG/2ML VIAL As Ordered ONE (11:43)
[2023-11-22] MEDS ORDERED: KETOROLAC 60MG 2ML VIAL As Ordered ONE (11:43)
[2023-11-22] MEDS ORDERED: fentaNYL 100 MCG/2 ML INJECTION As Ordered ONE (11:43)
[2023-11-22] MEDS ORDERED: LIDOCAINE 2% 100MG/5ML SDV (FOR ANES.) As Ordered ONE (11:44)
[2023-11-22] MEDS ORDERED: propofoL 200 MG/20 ML VIAL As Ordered ONE (11:44)
[2023-11-22] MEDS ORDERED: ACETAMINOPHEN 1000MG 100ML IV BAG As Ordered ONE (11:44)
[2023-11-22] MEDS ORDERED: METOCLOPRAMIDE INJ 10MG/2ML VIAL As Ordered ONE (12:49)
[2023-11-22] MEDS ORDERED: diphenhydrAMINE 50MG/ML VIAL As Ordered ONE (13:13)
[2023-11-22] MEDS ORDERED: ONDANSETRON 4MG 2ML VIAL IV PRN (13:45)
[2023-11-22] MEDS ORDERED: fentaNYL 100 MCG/2 ML INJECTION IV PRN (13:45)
[2023-11-22] MEDS: HYDROMORPHONE HCL 0.5 MG/ 0.5 ML SYRINGE IV PRN (13:59)
[2023-11-22] MEDS: oxyCODONE 5MG TAB PO PRN (14:16)
[2023-11-22] MEDS: fentaNYL 100 MCG/2 ML INJECTION IV PRN (14:29)
[2023-11-22 16:00] VITALS: BP 166/88; TEMP 98.3; O2SAT 99
== END 2023-11-22 16:18 | disposition home or self-care (01) ==
LOC: M SDC 10:39
PROVIDERS: ATTEND Orthopaedic Surgery Hand Surgery
DX: G56.01 Carpal tunnel syndrome, right upper limb (principal); M67.241 Synovial hypertrophy, not elsewhere classified, right hand; Z91.018 Allergy to other foods; Z91.048 Other nonmedicinal substance allergy status; Z91.040 Latex allergy status; Z88.8 Allergy status to other drugs, medicaments and biological substances; Z79.899 Other long term (current) drug therapy
CPT/HCPCS: 29848; 81025; 88305; J0131; J0665; J1100; J1170; J1200; J1885; J2250; J2405; J2765; J3010

== ENCOUNTER → 2024-03-29 | Outpatient (CLI) | payer OTHER ==
[~2024-03-29] MED LIST changes: +ONDA-282 PO; -ONDA4TAB6 PO; +ROSU5TAB40 PO; -ROSU5TAB5 PO
== END ==
LOC: M PLARAD 10:30
PROVIDERS: ATTEND Family Medicine
DX: M54.59 Other low back pain (principal)

== ENCOUNTER → 2024-04-10 | Outpatient (CLI) | payer OTHER | LOC: M WHC 07:43 | PROVIDERS: ATTEND Nurse Practitioner Family | DX: R92.8 Other abnormal and inconclusive findings on diagnostic imaging of breast (principal) ==

== ENCOUNTER → 2024-09-24 | Outpatient (CLI) | payer OTHER ==
[~2024-09-24] MED LIST changes: +GABA-1490 PO; -GABA600T4 PO; -ROSU5TAB40 PO; +ROSU5TAB49 PO
== END ==
LOC: M WHC 15:03
PROVIDERS: ATTEND Nurse Practitioner Adult Health
DX: Z12.31 Encounter for screening mammogram for malignant neoplasm of breast (principal); N64.89 Other specified disorders of breast
CPT/HCPCS: 76642; 77066; G0279

== ENCOUNTER → 2024-10-18 | Outpatient (CLI) | payer OTHER ==
[~2024-10-18] MED LIST changes: +D 50CAP2; +GABA-1172; +METH-1164 PO; +SEMA0.252
[2024-10-18 15:45] VITALS: TEMP 98.4
[2024-10-18 16:41] VITALS: BP 136/78; O2SAT 99
== END ==
LOC: M WHCPRO 15:40
PROVIDERS: ATTEND Nurse Practitioner Adult Health
DX: N63.21 Unspecified lump in the left breast, upper outer quadrant (principal); N63.23 Unspecified lump in the left breast, lower outer quadrant

== ENCOUNTER 2024-10-23 09:18 | Emergency (ER) | payer OTHER ==
[~2024-10-23] VITALS: Ht 170.2 cm; Wt 119.2 kg
[~2024-10-23 09:18] MED LIST changes: -D 50CAP2; -GABA-1172; -METH-1164 PO; -SEMA0.252
[2024-10-23] MEDS ORDERED: SEMA0.252 (09:33)
[2024-10-23] MEDS ORDERED: D 50CAP2 (09:33)
[2024-10-23] MEDS ORDERED: GABA-1172 (09:33)
[2024-10-23] MEDS: KETOROLAC 60MG 2ML VIAL IM ONE (12:00)
[2024-10-23] MEDS: methocarbamoL 500 MG TAB PO ONE (12:00)
[2024-10-23] MEDS ORDERED: METH-1164 PO (14:43)
[2024-10-23 14:50] VITALS: BP 140/87; TEMP 98.9; O2SAT 98
== END 2024-10-23 15:00 | disposition home or self-care (01) ==
LOC: M ED 09:18
DX: M41.86 Other forms of scoliosis, lumbar region (principal); M54.50 Low back pain, unspecified; J45.909 Unspecified asthma, uncomplicated; F10.10 Alcohol abuse, uncomplicated; Z91.040 Latex allergy status; Z91.018 Allergy to other foods; Z88.8 Allergy status to other drugs, medicaments and biological substances; Z79.4 Long term (current) use of insulin; Z79.899 Other long term (current) drug therapy
CPT/HCPCS: 72110; 96372; 99283; J1885

== ENCOUNTER 2024-10-28 12:07 | Emergency (ER) | payer OTHER ==
[~2024-10-28] VITALS: Ht 170.2 cm; Wt 119.0 kg
[~2024-10-28 12:07] MED LIST changes: +D 50CAP2; +GABA-1172; +METH-1164 PO; +SEMA0.252
[2024-10-28 12:10] VITALS: TEMP 97.4
[2024-10-28 14:29] VITALS: BP 157/91; O2SAT 98
[2024-10-28] MEDS: traMADol 50 MG TAB PO ONE (14:41)
[2024-10-28] MEDS ORDERED: MEDR4PAK PO (14:53)
== END 2024-10-28 15:03 | disposition home or self-care (01) ==
LOC: M ED 12:07
DX: S13.4XXA Sprain of ligaments of cervical spine, initial encounter (principal); S43.402A Unspecified sprain of left shoulder joint, initial encounter; M54.50 Low back pain, unspecified; R51.9 Headache, unspecified; Y92.481 Parking lot as the place of occurrence of the external cause; Y93.9 Activity, unspecified; Y99.9 Unspecified external cause status; W01.0XXA Fall on same level from slipping, tripping and stumbling without subsequent striking against object, initial encounter; Z88.8 Allergy status to other drugs, medicaments and biological substances; Z91.040 Latex allergy status; Z91.018 Allergy to other foods; Z79.4 Long term (current) use of insulin; Z79.899 Other long term (current) drug therapy

== ENCOUNTER → 2024-12-07 | Outpatient (CLI) | payer OTHER ==
[~2024-12-07] MED LIST changes: +MEDR4PAK PO
== END ==
LOC: M PLARAD 07:57
PROVIDERS: ATTEND Orthopaedic Surgery
DX: M47.816 Spondylosis without myelopathy or radiculopathy, lumbar region (principal); M43.16 Spondylolisthesis, lumbar region; M51.27 Other intervertebral disc displacement, lumbosacral region

== ENCOUNTER → 2025-01-29 | Outpatient (CLI) | payer OTHER | LOC: M RAD 11:00 | PROVIDERS: ATTEND Student in an Organized Health Care Education/Training Program | DX: M75.42 Impingement syndrome of left shoulder (principal) ==

== ENCOUNTER → 2025-05-30 | Outpatient (CLI) | payer OTHER ==
[~2025-05-30] MED LIST changes: -BIOT1000 PO; +BIOT10002 PO
== END ==
LOC: M RAD 15:39
PROVIDERS: ATTEND Nurse Practitioner Family
DX: R10.84 Generalized abdominal pain (principal); K42.9 Umbilical hernia without obstruction or gangrene; R93.89 Abnormal findings on diagnostic imaging of other specified body structures

== ENCOUNTER → 2025-07-02 | Outpatient (CLI) | payer OTHER | LOC: M RAD 15:26 | PROVIDERS: ATTEND Registered Nurse | DX: N83.202 Unspecified ovarian cyst, left side (principal) ==

== ENCOUNTER 2025-08-12 10:27 | Emergency (ER) | payer OTHER ==
[~2025-08-12] VITALS: Ht 170.2 cm; Wt 102.6 kg
[2025-08-12 11:24] LABS: BASO # 0.0 10^3/uL (0.0-0.2); BASO % 0.5 % (0.0-1.0); EOS # 0.1 10^3/uL (0.0-0.5); EOS % 1.3 % (0.0-3.0); LYMPH # 2.7 10^3/uL (1.5-5.0); LYMPH % 44.1 % (24.0-44.0); MONO # 0.6 10^3/uL (0.0-0.8); MONO % 9.8 % (2.0-8.0); NEUTROPHILS # 2.7 10^3/uL (1.5-8.5); NEUTROPHILS % 44.1 % (36.0-66.0); PLATELET COUNT, AUTOMATED 322 10^3/uL (150-450)
[2025-08-12 11:53] LABS: ALT/SGPT 29 U/L (7.0-40); AST/SGOT 21 U/L (<34); CALCIUM LEVEL 9.2 MG/DL (8.5-10.1); CARBON DIOXIDE LEVEL 25 MMOL/L (20-31); CHLORIDE LEVEL 106 MMOL/L (98-107); CREATININE FOR GFR 1.03 MG/DL (0.55-1.30); GLOMERULAR FILTRATION RATE 70.1 (>58); POTASSIUM SERUM 5.0 MMOL/L (3.5-5.1); SODIUM LEVEL 139 MMOL/L (136-145)
[2025-08-12 12:00] LABS: HCG, SERUM QUALITATIVE NEGATIVE (NEGATIVE)
[2025-08-12 13:14] LABS: KETONE, URINE AUTO RFX NEGATIVE (NEGATIVE); LEUKOCYTE ESTERASE UR AUTO RFX NEGATIVE (NEGATIVE); MUCUS, URINE RFX SMALL (NEGATIVE); NITRITE, URINE AUTO RFX NEGATIVE (NEGATIVE); RBC, URINE AUTO RFX 77 /HPF (0-3); SQUAM EPITHELIAL CELL UR AURFX 0 /HPF (0-6); WBC, URINE AUTO RFX 2 /HPF (0-3)
[2025-08-12] MEDS: ONDANSETRON 4MG/2ML VIAL IV ONE (13:17)
[2025-08-12] MEDS: PANTOPRAZOLE 40MG VIAL IV ONE (13:19)
[2025-08-12] MEDS: MAALOX 30 ML SUSP *UDC PO ONE (13:21)
[2025-08-12] MEDS ORDERED: ISOVUE-370 76% 100 ML VIAL As Ordered ONE (13:21)
[2025-08-12] MEDS: SUCRALFATE SUSP 1GM/10ML UD PO ONE (13:24)
[2025-08-12 14:11] VITALS: BP 132/86; TEMP 98.2; O2SAT 99
[2025-08-12] MEDS ORDERED: OMEP40CA4 PO (14:27)
[2025-08-12] MEDS ORDERED: SUCR1TA PO (14:27)
== END 2025-08-12 14:36 | disposition home or self-care (01) ==
LOC: M ED 10:27
DX: K29.00 Acute gastritis without bleeding (principal); Z88.8 Allergy status to other drugs, medicaments and biological substances; Z91.018 Allergy to other foods; Z91.09 Other allergy status, other than to drugs and biological substances; Z79.899 Other long term (current) drug therapy
CPT/HCPCS: 74177; 80048; 80076; 81001; 83690; 84703; 85025; 96374; 96375; 99284; J2405; J2470; Q9967

== ENCOUNTER → 2025-09-03 | Outpatient (REF) | payer OTHER ==
[~2025-09-03] MED LIST changes: +OMEP40CA4 PO; +SUCR1TA PO
[2025-09-03 17:28] LABS: COLLAGEN EPINEPHRINE 210 SECONDS (74-162)
[2025-09-03 17:43] LABS: COLLAGEN ADP 99 SECONDS (56-103)
== END ==
LOC: M LAB REF 16:20
PROVIDERS: ATTEND Physician Assistant
DX: Z01.818 Encounter for other preprocedural examination (principal)